=== PATIENT | male | born 1965 | race Caucasian/White ===

== ENCOUNTER → 2020-07-13 07:09 | Outpatient (CLI) | payer OTHER, SELFPAY | PROVIDERS: PCP Family Medicine Geriatric Medicine; Referring Provider Family Medicine Geriatric Medicine; Visit Provider Family Medicine Geriatric Medicine | DX: M54.12 Radiculopathy, cervical region (principal) ==

== ENCOUNTER 2020-07-13 18:00 | Outpatient (RCR) | payer OTHER, SELFPAY ==
--- NOTE | 2020-06-01 18:43 | HP.PTEVAL ---
Patient's Visit Information ANDREE AMAYA is a 55 year old M referred to Physical Therapy by Dr. Jose David Munson MD with a diagnosis of Thoracic strain. Date of Evaluation: 06/01/20 Physical Therapist: Dylan Lee DPT, OCS, CSCS - Visit Plan Frequency: 2-3x /Week Duration: 4-6 Weeks Plan: 2-3x/week for 2-4 weeks for. 1. cervical retraction adn eventually extension biased neck ROM and mobs as needed, possibly manual tracction.(monitor c/s ROM ext and R rotation and hand numbness/pain). 2. postural and cervical strength including isometric c/s retraction. 3. ES and MH to neck if needed. - Subjective 6 weeks agomessed up upper back and not sure how. Pain is R scapula and down R lateral arm and turns numb into 3/4 digit of R hand. doctor put him on steroids whcih helped alot. But they are gone and now he is worse again. No other treatments. Takes Advil. Not a familiar pain. Unsure of why it started. Was working on a [employer] the day prior. Not an unusual activity for him. Needs melatonin to sleep now and did not prior. Pain is to 7/10 constant, better with advil 5/10. Numbness constant. Feel weak in that arm also.Is R handed but using L more due to weakness. No x rays or MRI. 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 Typically every night works on cars and now maybe on the weekends. Basic aDLs are OK. No LBP or leg pain. - Pain R scap and arm Pain Intensity (Out of 10): 6 Pain Intensity Range: 5, 7 - Objective Posture is forward head and anterior scap. pecs tight. UE aROM WFL and full without pain increase. strength UE symmetrical 90 # resource protection specialist L and 95 R, 4+ UE. reflexes 2/3 bi and tri. Sensation diminished in 3/4 digit R UE. cervical aROM ext 45 adn painful. R rotation 40 adn painful. L rotation 60. SB full. + R c/s compression test with rotation. Repetiive motion testin: protrusion : NE. retraction: pdm, Better motion(70 ext adn 60 rotation R), numbness up the finger a little bit. ret/ext: better motion, NE pain. More numbness fingers. - Goals Goal 1:: Full cervical aROM without pain Goal Time Frame: 4-6 Weeks Goal 2:: Abolish hand numbness Goal Time Frame: 4-6 Weeks Goal 3:: Patient feel 90% back to normal with activities and strength Goal Time Frame: 4-6 Weeks Goal 4:: Back oswestry at 7 or less. Goal Time Frame: 4-6 Weeks Goal 5:: I appropriate HEP and body mechanics for prophylaxis. Goal Time Frame: 4-6 Weeks - Rehabilitation Potential Physical Therapy Diagnosis: cervical derangement likely Rehabilitation Potential: Fair - Anticipated Interventions Patient/Client Instruction: Educate patient on: Condition, Plan of Care For the Purpose of:: To decrease pain, To increase tolerance to activity/condition/position, To improve ability of physical actions for home/community/work/leisure Therapeutic Exercise to Include: Strength training, Postural training, Passive ROM, Active ROM, Ladi Exercises Comment: body mechanics For the Purpose of:: To decrease pain, To increase tolerance to activity/condition/position, To improve ability of physical actions for home/community/work/leisure Manual Therapy Techniques to Include: Mobilization, Soft tissue mobilization For the Purpose of:: To decrease pain, To increase ROM TENS: Yes Thermo therapy (hot pack): Yes For the Purpose of:: To decrease pain Thank you for the opportunity to evaluate your patient. For Medicare and Medicare HMO plans, please review the plan of care and approve it. It will need to be FAXED BACK to us at [phone] for Medicare purposes. For Medicare only, by signing this I certify the plan of care. Please let me know if there are questions or concerns regarding this plan of care. Physician Signature: Date:
--- NOTE | 2020-08-31 18:27 | HP.PT.NRP ---
ANDREE ELISABETH AMAYA was seen in my office for initial evaluation on 06/01/20. The following Plan of Care was established for this patient: Initial Frequency: 2-3x /Week Initial Duration: 4-6 Weeks Patient/Client Instruction: Educate patient on: Condition, Plan of Care For the Purpose of:: To decrease pain, To increase tolerance to activity/condition/position, To improve ability of physical actions for home/community/work/leisure Therapeutic Exercise to Include: Strength training, Postural training, Passive ROM, Active ROM, Ladi Exercises For the Purpose of:: To decrease pain, To increase tolerance to activity/condition/position, To improve ability of physical actions for home/community/work/leisure Manual Therapy Techniques to Include: Mobilization, Soft tissue mobilization For the Purpose of:: To decrease pain, To increase ROM TENS: Yes Thermo therapy (hot pack): Yes For the Purpose of:: To decrease pain This patient was last seen in our office 07/13/20. Pertinent comments regarding their Physical therapy will appear below: Pt seen 9 visits of POC and seemed to be improving with therapy. He did not schedule or attend his recheck. at this point, it has been over 6 weeks and I willd iscontinue due to nonattendance. At this point I will be discontinuing this patient from physical therapy. I would be happy to see this patient again in the future if found appropriate by the physician. Thank you! Dylan Lee, DPT, OCS, CSCS
== END 2020-07-13 19:00 | disposition home or self-care (01) ==
LOC: PT 18:00
PROVIDERS: PCP Family Medicine; Referring Provider Family Medicine Geriatric Medicine; Visit Provider Family Medicine Geriatric Medicine
DX: S23.9XXD Sprain of unspecified parts of thorax, subsequent encounter (principal)
CPT/HCPCS: 97012; 97110; 97140; 97162; 97530

== ENCOUNTER → 2021-04-08 17:41 | Outpatient (CLI) | payer OTHER, SELFPAY ==
--- NOTE | 2021-04-08 17:47 | MRI_ITS ---
HISTORY: Cervical radiculopathy. Neck, right shoulder and arm pain. TECHNIQUE: Routine MRI of the cervical spine was performed. # of images incl. paperwork: 309. IV Contrast dosage and agent: None. COMPARISON: None. FINDINGS: VERTEBRAE: Vertebral body heights maintained. Degenerative bone marrow endplate changes at C6-7. ALIGNMENT: 2 mm retrolisthesis of C4-5. CORD: Morphology and signal within normal limits. SOFT TISSUES: No prevertebral fluid collection. INTERVERTEBRAL DISCS: C2-3, C7-T1: No significant posterior disc protrusion, central canal stenosis, or foraminal narrowing. C3-4: Mild disc bulge with minimal narrowing of the thecal sac. C4-5: Mild posterior disc bulge osteophyte complex without significant central canal stenosis or foraminal narrowing. C5-6: Mild posterior disc bulge osteophyte complex with uncovertebral and facet arthropathy resulting in minimal narrowing of the thecal sac. C6-7: Moderate posterior disc protrusion with uncovertebral and facet arthropathy resulting in mild central canal stenosis and bilateral foraminal narrowing. MRI/Spine Cervical (Routine) IMPRESSION: Mild multilevel degenerative disc disease as described above. at 1652 Reported and signed by: Sultana Herrera MD Electronically Signed: Sultana Herrera MD at 16:51 EDT Tel , Service support ,
== END ==
PROVIDERS: PCP Family Medicine Geriatric Medicine; Visit Provider Family Medicine Geriatric Medicine
DX: M54.12 Radiculopathy, cervical region (principal)
CPT/HCPCS: 72141